=== PATIENT | female | born 1995 | race Caucasian/White ===

== ENCOUNTER 2022-04-22 14:51 | Outpatient (CLI) | payer OTHER ==
[~2022-04-22] VITALS: Ht 170.2 cm; Wt 84.7 kg
[2022-04-22] MEDS ORDERED: HOME MED LIST COMPLETE! XX SCH (15:20)
[2022-04-22] MEDS ORDERED: PREN1TAB11 PO (15:20)
[2022-04-22] MEDS ORDERED: ONDA8TAB8 PO (15:20)
[2022-04-22] MEDS ORDERED: PROZ20CA11 PO (15:20)
[2022-04-22 15:21] VITALS: BP 99/63
[2022-04-22 17:46] VITALS: BP 116/63
[2022-04-22] MEDS ORDERED: OMEPRAZOLE 20MG CAP PO ONE (17:50)
[2022-04-22] MEDS ORDERED: ONDANSETRON 4MG TAB PO PRN (17:50)
[2022-04-22] MEDS ORDERED: ONDA-83 PO (21:45)
== END 2022-04-22 20:34 | disposition home or self-care (01) ==
LOC: M LDO 14:51
PROVIDERS: ATTEND Advanced Practice Midwife
DX: O21.8 Other vomiting complicating pregnancy (principal); O26.893 Other specified pregnancy related conditions, third trimester; R10.10 Upper abdominal pain, unspecified; O34.219 Maternal care for unspecified type scar from previous cesarean delivery; O60.03 Preterm labor without delivery, third trimester; Z86.16 Personal history of COVID-19; Z3A.29 29 weeks gestation of pregnancy
CPT/HCPCS: 59025; 76817; 81002; 87486; 87581; 87633; 87798; G0463